=== PATIENT | female | born 1955 | race Caucasian/White ===

== ENCOUNTER 2019-06-25 13:51 | Emergency (ER) | payer MEDICARE, SELFPAY ==
--- NOTE | ~2019-06-25 | XR_ITS ---
EXAMINATION: XR wrist LT min 3V DATE: 06/25/2019 14:22 INDICATION: Left wrist fracture. TECHNIQUE: 3 views of left wrist were obtained. COMPARISON: None. FINDINGS: There is a comminuted fracture of distal radius with involvement of the distal radioulnar j oint and distal articular surface. The main distal fracture fragment demonstrates impaction and dorsa l angulation. There is 34 degrees dorsal tilt of the distal articular surface. There is an avulsion f racture of the ulnar styloid. There is mild osteoarthritis of first carpometacarpal joint. IMPRESSION: 1. Comminuted fractures of distal radius. 2. Avulsion fracture of the ulnar styloid. Reviewed, dictated and finalized at location A.
[2019-06-25 14:00] VITALS: BP 144/82; PULSE 93; RESP 18; TEMP 36.7; O2SAT 97
--- NOTE | 2019-06-25 14:15 | ED.UPPEXIN ---
HPI - Extremity Injury (Upper) General Chief Complaint: Extremity Injury, Upper Stated Complaint: numbness to finger, has ocl in place to arm Time Seen by Provider: 06/25/19 13:54 Source: patient Mode of arrival: ambulatory Limitations: no limitations History of Present Illness HPI narrative: Patient is a 63-year-old female who presents to the emergency department with complaint of left third finger numbness after sustaining a left wrist fracture yesterday. Patient was playing with her grandkids yesterday and took a hard fall onto her left wrist. Patient was seen at [place] urgent [facility] and x-ray showed evidence of a distal radius fracture and ulnar styloid fracture. Patient was placed in OCL splint and referred to Dr. Bell. Patient states she contacted Dr. Bell's office and has been referred to Dr. Vinson at [facility] for follow-up care. She states she has an appointment in 2 days to be evaluated. Patient reports onset of numbness to her left third finger today. Patient has been icing and elevating her wrist. She denies any numbness to her index finger, thumb, or fourth finger. She denies any numbness to the dorsal or palmar surface of her hand. She states the numbness is isolated to the third finger. complaint: injury to: left and wrist Onset (ago): day(s) (1) Place: home Context: fall Treatments prior to arrival: spinal immobilization Related Data Allergies Allergy/AdvReac Type Severity Reaction Status Date / Time No Known Allergies Allergy Verified 06/25/19 14:06 Review of Systems Review of Systems: All systems reviewed & are unremarkable except as noted in HPI and below PMFSH Past Medical History Medical History (Updated 06/25/19 @ 15:29 by Tahira Herrera MD) Osteopenia Surgical History Surgical History (Updated 06/25/19 @ 14:18 by Tahira Herrera MD) S/P lumpectomy of breast Social History Social History (Updated 06/25/19 @ 14:18 by Tahira Herrera MD) Smoking status: Never smoker Gender identity (if verbalized by the patient): Female Exam Const: General: cooperative, no acute distress and alert Nutritional Appearance: well nourished Orientation/consciousness: patient oriented x3 Limitations: no limitations Resp: Effort & Inspection: normal respiratory effort Cardio: Rate: regular rate Rhythm: regular rhythm Peripheral pulses: radial pulses present on the left 2+ Skin: General skin exam: normal color Neuro: General: patient oriented x3 Cognition (Neuro): normal cognition Speech: normal speech Extrem: General: normal to inspection, full ROM and no clubbing, cyanosis or edema Left upper extremity: normal capillary refill and wrist tenderness, swelling, deformity, radial pulse present 2+ and other Other: Decreased sensation along entire aspect of left third finger. Sensation grossly intact to thumb, second finger, and fourth finger as well as palmar and dorsal surfaces of the hand. Psych: Mental Status: mental status grossly normal Affect: normal affect Attitude: cooperative Course Course Emergency Course: Patient has decreased fine sensation over the distal to phalanxes of the third finger on the left hand. Patient sensation along the distribution of the median nerve is otherwise normal and intact. Patient does have comminuted displaced distal radius fracture which could be irritating her median nerve, but certainly does not have anything in a full dermatomal/nerve distribution based on her exam and current symptoms. Patient has appointment with surgeon in 2 days and wrist will need surgical reduction and fixation. Splint that patient presented with was wider than what would be ideal and malformed. New OCL splint applied with extensive padding and more proper sizing and molding. Patient offered opportunity to follow-up with on-call local orthopedic surgeon. Patient states she is comfortable with her current orthopedic follow-up in 2 days with specialist at [place]
[2019-06-25 15:33] VITALS: BP 145/78; PULSE 75; RESP 18; O2SAT 98
== END 2019-06-25 15:35 | disposition home or self-care (01) ==
PROVIDERS: Emergency Provider Emergency Medicine; PCP Internal Medicine
DX: S52.592A Other fractures of lower end of left radius, initial encounter for closed fracture (principal); S52.612A Displaced fracture of left ulna styloid process, initial encounter for closed fracture; R20.2 Paresthesia of skin; M85.80 Other specified disorders of bone density and structure, unspecified site; W19.XXXA Unspecified fall, initial encounter
CPT/HCPCS: 29125; 73110; 99284